=== PATIENT | male | born 1955 | race Caucasian/White ===

== ENCOUNTER 2016-02-19 09:14 | Outpatient (CLI) | payer BC ==
--- NOTE | 2016-02-19 11:03 | DIAGNOSTIC IMAGING REPORT ---
PROCEDURE: US ABDOMEN ULTRASOUND-COMPLETE INDICATION: GALLSTONES TECHNIQUE: Borrego scale and color Doppler sonographic images of the abdomen were obtained without comparison. COMPARISON: None. FINDINGS: The liver is enlarged measuring 20 cm and demonstrates increased echogenicity. No mass or intrahepatic biliary dilatation. The gallbladder contains a 2.4 cm mobile stone. The wall is normal thickness measuring 2 ml. No pericholecystic fluid or Vargas sign. The extrahepatic common duct is normal measuring 6 mm The visualized pancreas is not well seen. The abdominal aorta is normal in its course and caliber. The retrohepatic inferior vena cava is patent. There is appropriate hepatopetal flow in the portal vein. The right kidney measures 13.6 cm in length. The left kidney measures 12.9 cm in length. Both kidneys demonstrate normal morphology and cortical thickness without hydronephrosis, cyst, solid mass, or shadowing calculus. Color Doppler imaging demonstrates normal blood flow in each kidney. The spleen is normal in size measuring 10.9 cm in length. There is no perihepatic or perisplenic ascites. IMPRESSION: 1. Cholelithiasis, hepatomegaly, fatty liver.
[2016-03-22] MEDS ORDERED: LISINOPRIL10 MG PO (18:12)
[2016-03-22] MEDS ORDERED: VITAMIN D-31000 UNIT PO (18:12)
[2016-03-22] MEDS ORDERED: MULTIVITAMIN1 TAB PO (18:12)
== END 2016-02-19 23:00 ==
LOC: US SRH 09:14
DX: K80.20 Calculus of gallbladder without cholecystitis without obstruction (principal); K76.0 Fatty (change of) liver, not elsewhere classified

== ENCOUNTER 2016-03-28 05:42 | Day surgery (SDC) | payer BC ==
[~2016-03-28] VITALS: Ht 177.8 cm; Wt 139.8 kg
[~2016-03-28 05:42] MED LIST: LISINOPRIL10 MG PO; MULTIVITAMIN1 TAB PO; VITAMIN D-31000 UNIT PO
[2016-03-28] MEDS ORDERED: HYCET1 ML PO (08:37)
--- NOTE | 2016-03-28 08:39 | Provider's Discharge Care Plan ---
Problem, Goal, Plan Problem List 1. S/P laparoscopic cholecystectomy Goals: Improve disease control, Therapeutic intervention Instructions: Follow up as directed, Take meds as directed
--- NOTE | 2016-03-28 08:39 | Provider's Discharge Care Plan ---
Problem, Goal, Plan Problem List 1. S/P laparoscopic cholecystectomy Goals: Improve disease control, Therapeutic intervention Instructions: Follow up as directed, Take meds as directed
--- NOTE | 2016-03-28 09:23 | OPERATIVE REPORT ---
DATE OF SURGERY: 03/28/2016 SURGEON: Alber Saravia III, MD [employer] REPRESENTATIVE: Saeed Prescott MD PREOPERATIVE DIAGNOSIS: 1. Cholelithiasis POSTOPERATIVE DIAGNOSES: 1. Cholelithiasis 2. Normal intraoperative cholangiogram PROCEDURES PERFORMED: 1. Laparoscopic cholecystectomy 2. Fluoroscopic intraoperative cholangiogram ANESTHESIA: General Endotracheal. ESTIMATED BLOOD LOSS: None. FLUIDS: 600 mL lactated Ringers. PATHOLOGY SPECIMEN: Gallbladder and contents. INDICATIONS: The patient is a 61-year-old male. while getting a CTA, he was noted to have cholelithiasis, followed by an ultrasound which showed fatty liver and a 2.4 mobile stone. He was asymptomatic. After careful discussion of the pathophysiology of gallbladder and gallbladder disease with the patient, he opted to proceed with elective cholecystectomy. SURGICAL FINDINGS: The gallbladder neck was impacted in fat as appropriate for his body habitus. The intraoperative cholangiogram showed free flow of contrast material into the duodenum, with no evidence of retained stone. Visualization of hepatic radicles, hepatic duct, and common bile duct. The patient had a thin walled gallbladder and a single stone. SURGICAL TECHNIQUE: The patient was brought to the operating room and placed in the dorsal supine position, where he underwent general endotracheal anesthesia by the anesthesiology department. After proper anesthesia had taken effect, the patient 's abdomen was prepped using Betadine and draped in a sterile fashion. An infraumbilical incision was made, carried down through skin and subcutaneous tissue. A Veress needle was inserted through this site, into the abdominal cavity and after ascertaining its appropriate position with suction irrigation, a pneumoperitoneum was obtained using CO2 insufflation to approximately 14-15 mmHg pressure. Once this pressure was reached, the Veress needle was removed and replaced with a 10 mm trocar. The trocar was removed, leaving the sleeve behind, through which a laparoscopic video camera was introduced in the abdominal cavity. Under direct visualization, a separate 10 mm trocar was placed in the subxiphoid region, two 5 mm trocars placed in the anterolateral abdominal wall, approximately 3-4 fingerbreadths below the costal margin. Each trocar entered the abdominal cavity under direct visualization. The trocars were removed, leaving the sleeves behind, through which laparoscopic instrumentation was introduced into the abdominal cavity. The gallbladder was grasped and retracted cephalad. We were able then to circumferentially isolate the cystic duct using a combination of blunt dissection and electrocautery. A clip was placed at the junction of the neck of the gallbladder and the cystic duct. A small incision was made in the anterior surface of the cystic duct using EndoShears. A percutaneous cholangiogram catheter was threaded through the anterior abdominal wall, into the cystic duct, clipped into position, and a fluoroscopic intraoperative cholangiogram obtained with the aforementioned findings noted. Once completed, the percutaneous cholangiogram catheter was retrieved from the cystic duct and the abdominal cavity. The distal cystic duct was clipped in continuity, divided. The cystic artery was identified, clipped in continuity and divided. The gallbladder was taken down from its bed in a retrograde fashion using electrocautery dissection. It was then transferred to a sterile specimen container bag and retrieved from the abdominal cavity. The gallbladder bed was inspected for hemostasis. Assuring ourselves of proper hemostasis, the right upper quadrant was irrigated copiously with warm normal saline and antibiotic solution and the irrigant suctioned out. Approximately 30 mL of 0.5% Marcaine with epinephrine was sprayed over the right and left dome of the liver for postoperative analgesia. The pneumoperitoneum was released and all trocars were removed from the abdominal cavity. All trocar sites were then approximated using 4-0 subdermal Polysorb and Steri-Strips. A sterile pressure occlusive dressing was placed over each site. The patient tolerated the procedure well, was extubated and transferred to the recovery room in stable condition. There were no intraoperative or anesthetic complications.
--- NOTE | 2016-03-28 09:24 | DIAGNOSTIC IMAGING REPORT ---
PROCEDURE: XR INTRAOPERATIVE LAP MELODIE INDICATION: CHOLELITHIASIS TECHNIQUE: Intraoperative fluoroscopy provided for Dr. Saravia performing an intraoperative cholangiogram following cholecystectomy. Total fluoroscopy time 6 seconds. Cumulative dose 4.5 mGy. COMPARISON: None. FINDINGS: Two intraoperative fluoroscopic spot images of the right upper quadrant of the abdomen demonstrate cannulation of the cystic duct stump and opacification of the intrahepatic and extrahepatic biliary tree. There are no filling defects. There is normal passage of contrast into the duodenum. IMPRESSION: 1. Negative intraoperative cholangiogram.
[2016-03-28 10:42] VITALS: BP 140/79
== END 2016-03-28 11:42 | disposition home or self-care (01) ==
LOC: OR SRH 05:42 → SCU SRH 06:04 → OR SRH 07:30
PROVIDERS: Specialist
PROC: BF131ZZ Fluoroscopy of Gallbladder and Bile Ducts using Low Osmolar Contrast (ICD-10-PCS; principal; 2016-03-28 07:30)
PROC: 0FT44ZZ Resection of Gallbladder, Percutaneous Endoscopic Approach (ICD-10-PCS; principal; 2016-03-28 07:30)
DX: K80.10 Calculus of gallbladder with chronic cholecystitis without obstruction (principal); E66.9 Obesity, unspecified; Z68.41 Body mass index [BMI] 40.0-44.9, adult; Z72.0 Tobacco use; I10 Essential (primary) hypertension
CPT/HCPCS: 29240; 50002; 60001; 70002; 80102; 80212; 80248; 82794; 82807; 83338; 83339; 83348; 83587; 83920; 83937; 83982; 84038; 90047; 90074; 95059